=== PATIENT | male | born 1940 | race Caucasian/White ===

== ENCOUNTER 2017-02-07 08:22 | Outpatient (CLI) | payer MEDICARE, OTHER ==
[~2017-02-07] VITALS: Ht 175.3 cm; Wt 105.9 kg
[2017-02-07] MEDS ORDERED: SERT50TA9 PO (08:39)
[2017-02-07] MEDS ORDERED: CARV12.53 PO (08:39)
[2017-02-07] MEDS ORDERED: PRAV40TA2 PO (08:39)
[2017-02-07] MEDS ORDERED: LISI10TA2 PO (08:39)
[2017-02-07] MEDS ORDERED: LEVO100T7 PO (08:40)
[2017-02-07 08:46] VITALS: BP 121/79
[2017-02-07 09:04] LABS: BILIRUBIN,URINE NEGATIVE (NEGATIVE); KETONES,URINE NEGATIVE (NEGATIVE); LEUKOCYTE ESTERASE ,URINE NEGATIVE (NEGATIVE); NITRITE,URINE NEGATIVE (NEGATIVE); PH,URINE 6.5 (5-9); PROTEIN,URINE NEGATIVE (NEGATIVE); UROBILINOGEN,URINE NORMAL (NORMAL)
[2017-02-07 09:20] LABS: SQUAMOUS EPITHELIAL CELL,UR RARE /HPF
--- NOTE | 2017-02-07 11:11 | Diagnostic Imaging Report ---
EXAMINATION: PA and lateral views of the chest. INDICATION: Preoperative evaluation for brachytherapy. COMPARISON: No prior studies are available for comparison. FINDINGS: There is marked elevation of the right hemidiaphragm. Right basilar atelectasis is seen. A slightly prominent indeterminate opacity along the right parasternal region is seen. The left lung appears clear. No effusion or pneumothorax. IMPRESSION: There is elevation of the right hemidiaphragm and an indeterminate opacity in the right paratracheal region. Evaluation with a CT scan of the chest is recommended. The report was called to the office of Dr. Santosh Desai by JINNY at 11:11AM. Dictated by: Dictated on workstation # [id number]
[2017-02-14] MEDS ORDERED: ACET1TAB43 PO (11:35)
[2017-02-14] MEDS ORDERED: CIPR-226 PO (11:35)
== END 2017-02-07 11:39 | disposition home or self-care (01) ==
LOC: PREOP 08:22
PROVIDERS: ATTEND Radiology Radiation Oncology
DX: Z01.811 Encounter for preprocedural respiratory examination (principal); Z01.812 Encounter for preprocedural laboratory examination; Z11.2 Encounter for screening for other bacterial diseases; C61 Malignant neoplasm of prostate
CPT/HCPCS: 71020; 81000; 87081

== ENCOUNTER → 2017-02-08 | Outpatient (CLI) | payer MEDICARE, OTHER ==
[~2017-02-08] MED LIST: ACET1TAB43 PO; CARV12.53 PO; CATHETER FLUSH 10 ML SYR IV PRN; CIPR-226 PO; IOHEXOL 350 MG/ML 100 ML (OMNIPAQUE 350) VIAL IV ONE; LEVO100T7 PO; LISI10TA2 PO; NS 100 ML (IVPB) BAG IV ONE; PRAV40TA2 PO; SERT50TA9 PO
--- NOTE | 2017-02-08 12:08 | Diagnostic Imaging Report ---
PROCEDURE: CT chest with contrast only. TECHNIQUE: Multiple contiguous axial images were obtained through the chest after administration of intravenous contrast. INDICATION: Elevated right hemidiaphragm and opacity in the right paratracheal region seen on the chest x-ray of 02/07/2017. CONTRAST: 75 mL of Omnipaque 350 was administered intravenously. FINDINGS: There is elevation of the right hemidiaphragm. There is overall volume loss in the right lung with minimal fibrotic changes in the right lung base. There is deviation of the trachea and mediastinal structures slightly to the right in the upper thorax with mild vascular tortuosity explaining the opacity seen on the chest x-ray with no underlying mass or lymphadenopathy. No suspicious lung mass or significant consolidation is seen. There are calcifications seen in the right hilum and right paratracheal region which may relate to a prior granulomatous process or calcified sutures based on the provided history of prior thoracic surgery. No significantly enlarged lymph node in the axilla, darwin, or mediastinum. The heart size is normal. No pericardial or pleural effusion. Sections in the upper abdomen appear grossly unremarkable. The osseous structures appear grossly unremarkable. IMPRESSION: There is elevation of the right hemidiaphragm and mild deviation of the upper mediastinum to the right with overall low lung volume on the right side. This could relate to prior partial pneumonectomy. Correlate with the surgical history. There is no significant consolidation and no suspicious nodule or mass is seen at this time. Dictated by: Dictated on workstation # [id number]
== END ==
LOC: RAD 08:59
PROVIDERS: ATTEND Nurse Practitioner Family
DX: R91.1 Solitary pulmonary nodule (principal)
CPT/HCPCS: 71260

== ENCOUNTER 2017-02-14 10:55 | Day surgery (SDC) | payer MEDICARE, OTHER ==
[~2017-02-14] VITALS: Ht 175.3 cm; Wt 105.9 kg
[~2017-02-14 10:55] MED LIST changes: -ACET1TAB43 PO; -CATHETER FLUSH 10 ML SYR IV PRN; -CIPR-226 PO; -IOHEXOL 350 MG/ML 100 ML (OMNIPAQUE 350) VIAL IV ONE; -NS 100 ML (IVPB) BAG IV ONE
[2017-02-14 11:10] VITALS: BP 147/78
[2017-02-14] MEDS ORDERED: CATHETER FLUSH 10 ML SYR IV PRN (11:15)
[2017-02-14] MEDS ORDERED: LEVOFLOXACIN 500 MG/D5W 100 ML (PRE-MIX) IV ONE (11:15)
--- NOTE | 2017-02-14 11:26 | Progress Note-Pre Operative ---
Pre-Operative Progress Note H&P Reviewed The H&P was reviewed, patient examined and no changes noted. Date H&P Reviewed: February 14, 2017 Time H&P Reviewed: 11:25 Pre-Operative Diagnosis: Prostate cancer cT2a, PSA 6.8, [place] 7 (4+3) NIURKA MATOS MD February 14, 2017 11:26
--- NOTE | 2017-02-14 11:31 | Discharge Inst-Simple/Standard ---
Discharge Inst-Standard Discharge Medications New, Converted or Re-Newed RX: RX Given to Pt/Family Patient Instructions/Follow Up Plan of Care/Instructions/FU: 1) Follow up scheduled with Dr. Olivares for March 15 at 11:15 a.m. 2) Follow up scheduled at [facility] for March 14 at 10:00 a.m. Activity as Tolerated: Yes Discharge Diet: No Restrictions Other Inst to Patient Patient has copy of post implant instructions given during consult and at [facility] NIURKA MATOS MD February 14, 2017 11:31
[2017-02-14] MEDS ORDERED: ACET1TAB43 PO (11:35)
[2017-02-14] MEDS ORDERED: CIPR-226 PO (11:35)
[2017-02-14] MEDS: LACTATED RINGERS 1,000 ML IV PRN ×2 (12:45→13:00)
[2017-02-14] MEDS ORDERED: proPOfol 200 MG/20 ML (DIPRIVAN) VIAL IV ONE (12:49)
[2017-02-14] MEDS ORDERED: SEVOFLURANE (ULTANE) 15 ML INHAL SOLN ONE ×3 (12:49→14:16)
[2017-02-14] MEDS ORDERED: LIDOCAINE PF 2% 10 ML (XYLOCAINE) AMP ONE (12:49)
[2017-02-14] MEDS ORDERED: LACTATED RINGERS 1,000 ML IV ONE ×2 (12:49→13:56)
[2017-02-14] MEDS ORDERED: fentaNYL INJECTION 100 MCG/2 ML AMP ONE (12:50)
[2017-02-14] MEDS ORDERED: ONDANSETRON 4 MG/2 ML (SDV) Z0FRAN ONE (13:56)
[2017-02-14 15:20] VITALS: BP 143/83
[2017-02-14 15:50] VITALS: BP 124/79
--- NOTE | 2017-02-14 16:36 | Diagnostic Imaging Report ---
EXAMINATION: Intraoperative view of the pelvis. INDICATION: Brachytherapy for prostate cancer. FLUOROSCOPY TIME: 10 seconds of fluoroscopy time was provided. IMPRESSION: The provided image demonstrates brachytherapy fiducial markers projecting over the area of the prostate and superior to it. Contrast within the bladder with a Keys catheter appears to be present. Dictated by: Dictated on workstation # [id number]
--- NOTE | 2017-02-14 16:38 | Progress Note-Post Operative ---
Post-Operative Progess Note Surgeon (s)/Microbiology Analyst (s) Surgeon NIURKA MATOS MD Microbiology Analyst: Aurelia FARLEY MD Pre-Operative Diagnosis Prostate cancer cT2a, PSA 6.8, [place] 7 (4+3) Post-Operative Diagnosis Same as pre-op Procedure & Operative Findings Date of Procedure 02/14/17 Procedure Preformed/Findings Prostate volume 31 cc. Anesthesia Type General Estimated Blood Loss Estimated blood loss (mL): minimal Specimens/Packing Specimens Removed N/A Packing: N/A NIURKA MATOS MD February 14, 2017 16:38
[2017-02-14 16:40] VITALS: BP 118/82
[2017-02-14 17:20] VITALS: BP 118/82
== END 2017-02-14 17:20 | disposition home or self-care (01) ==
LOC: SDC 10:55
PROVIDERS: ATTEND Radiology Radiation Oncology
DX: C61 Malignant neoplasm of prostate (principal); E78.00 Pure hypercholesterolemia, unspecified; I10 Essential (primary) hypertension; E03.9 Hypothyroidism, unspecified; Z79.899 Other long term (current) drug therapy
CPT/HCPCS: 0438T; 55875; 76965; 77290; 77318; 77332; 77336; 77470; 77778; 77790

== ENCOUNTER 2017-03-14 09:37 | Outpatient (RCR) | payer MEDICARE, OTHER ==
[2017-02-08 09:47] LABS: CREATININE SERUM 0.96 MG/DL (0.60-1.30)
[~2017-03-14 09:37] MED LIST changes: +ACET1TAB43 PO; +CIPR-226 PO
== END 2017-03-15 | disposition home or self-care (01) ==
LOC: ONC 09:37
PROVIDERS: ATTEND Radiology Radiation Oncology
DX: C61 Malignant neoplasm of prostate (principal)
CPT/HCPCS: 36415; 76873; 77290; 82565; 84520; 99215

== ENCOUNTER 2017-08-23 13:59 | Outpatient (RCR) | payer MEDICARE, OTHER | END 2017-10-17 | disposition home or self-care (01) | LOC: ONC 13:59 | PROVIDERS: ATTEND Radiology Radiation Oncology | DX: C61 Malignant neoplasm of prostate (principal); E78.00 Pure hypercholesterolemia, unspecified; I10 Essential (primary) hypertension; E03.9 Hypothyroidism, unspecified; Z79.899 Other long term (current) drug therapy | CPT/HCPCS: 77295; 77336; 99213 ==